=== PATIENT | male | born 1960 | race Caucasian/White ===

== ENCOUNTER 2024-08-13 07:04 | Day surgery (SDC) | payer MEDICARE, MEDICAID ==
[~2024-08-13 07:04] MED LIST: Lactated Ringers 1,000 ML IV SCH; Sodium Chloride 0.9% 10 ML Syringe FLUSH PRN
[2024-08-13] MEDS ORDERED: ePHEDrine 50 MG/ML SDV IV ONE (07:05)
[2024-08-13] MEDS ORDERED: Flumazenil 0.1 MG/ML 5 ML MDV IV ONE (07:05)
[2024-08-13] MEDS ORDERED: Propofol 200 MG/20 ML SDV IV ONE (07:05)
[2024-08-13] MEDS ORDERED: Midazolam 1 MG/ML 2 ML SDV IV ONE (07:05)
[2024-08-13] MEDS ORDERED: Glycopyrrolate 0.2 MG/ML 5 ML MDV IV ONE (07:05)
[2024-08-13] MEDS ORDERED: Lidocaine 2% 100 MG/5 ML Syringe IVPUSH ONE (07:05)
[2024-08-13] MEDS: Lactated Ringers 1,000 ML IV SCH (08:18)
[2024-08-13] MEDS: Simethicone Drops 40 MG/0.6 ML 30 ML Bottle ONE (09:16)
== END 2024-08-13 11:00 ==
LOC: FB.SDS 07:04
PROVIDERS: ATTEND Surgery
DX: Z12.11 Encounter for screening for malignant neoplasm of colon (principal); D12.6 Benign neoplasm of colon, unspecified; K57.30 Diverticulosis of large intestine without perforation or abscess without bleeding; K21.9 Gastro-esophageal reflux disease without esophagitis; E03.9 Hypothyroidism, unspecified; Z79.899 Other long term (current) drug therapy; Z79.890 Hormone replacement therapy; Z88.8 Allergy status to other drugs, medicaments and biological substances
CPT/HCPCS: 00811; 88305; A9270-GY; J1596; J2250; J2704; J3490; J7120